=== PATIENT | male | born 1985 | race Caucasian/White ===

== ENCOUNTER 2021-12-18 17:57 | Emergency (ER) | payer OTHER, SELFPAY ==
[2021-12-18] VITALS (8 sets, daily range): BP systolic 125–140; BP diastolic 77–92; PULSE 75–92; RESP 14–16; TEMP 36.3; O2SAT 97–100
--- NOTE | ~2021-12-18 | CT_ITS ---
EXAMINATION: CT abdomen pelvis w con DATE: 12/18/2021 19:38 INDICATION: Abdominal pain. Diarrhea. Blood in stool. TECHNIQUE: Computed tomography (CT) of the abdomen and pelvis was performed with 100 cc Omnipaque 350 intravenous contrast. The dose-length product was 941.99 mGy-cm. Automated exposure control and iter ative reconstruction technique were employed. COMPARISON: None. FINDINGS: Lung bases are unremarkable. Heart size normal. No significant pleural or pericardial effus ion. The liver, spleen, pancreas, adrenal glands and kidneys are within normal limits. There is abnor mal thickening of the distal sigmoid colon and rectum, consistent with proctocolitis, most likely inf ectious or inflammatory. No free air or free fluid. Gallbladder is present. No significant vascular a bnormality. No lymphadenopathy. IMPRESSION: 1. Abnormal thickening of the distal sigmoid colon and rectum, consistent with proctocolitis, most li silvano infectious or inflammatory. Reviewed, dictated and finalized at location A. IMPRESSION: 1. Abnormal thickening of the distal sigmoid colon and rectum, consistent with proctocolitis, most likely infectious or inflammatory.
[2021-12-18 18:29] LABS: Basophils Percent Auto 0.3 % (0.2-1.2); Eosinophils Percent Auto 0.4 % (0-4.4); Hematocrit 49.7 % (42.0-52.0); Hemoglobin 16.1 g/dL (14.0-18.0); Immature Granulocyte Absolute 0.04 K/mm3 (0.00-0.031); Immature Granulocyte Percent A 0.4 % (0-0.5); Lymphocytes Absolute Auto 2.86 K/mm3 (0.9-3.2); Lymphocytes Percent Auto 26.8 % (18.3-44.2); Mean Corpuscular HGB Conc 32.4 g/dl (32-36); Mean Corpuscular Volume 86.6 fl (80-100); Mean Platelet Volume 10.4 fl (7.4-10.4); Monocytes Absolute Auto 0.7 K/mm3 (0.1-0.6); Monocytes Percent Auto 6.6 % (2.6-8.5); Neutrophils Percent Auto 65.5 % (45.5-73.1); Platelet Count Result 273 k/mm3 (150-375); Red Blood Count 5.74 M/mm3 (4.6-6.20); Red Cell Distribution Width 13.9 % (11.5-14.5); White Blood Count 10.7 K/mm3 (4.5-10.0)
[2021-12-18 18:40] LABS: Partial Thromboplastin Time 31.5 SECONDS (22.3-36.8); Prothrombin Time 13.1 Seconds (11.1-14.7)
[2021-12-18 18:43] LABS: Alanine Aminotransferase 25 U/L (6-50); Albumin Level 4.7 g/dL (3.5-5.1); Alkaline Phosphatase 73 U/L (38-126); Anion Gap 12 mmol/L (8-16); Aspartate Amino Transferase 23 U/L (17-59); Bilirubin,Total 0.7 mg/dL (0.2-1.3); Blood Urea Nitrogen 8 mg/dL (9-20); Calcium 9.8 mg/dL (8.4-10.2); Carbon Dioxide 23 mmol/L (22-30); Chloride 101 mmol/L (98-107); Estimated CRCL calculation 134 ml/min; Estimated Glomerular Filt Rate > 60; Glucose 91 mg/dL (65-110); Potassium 3.7 mmol/L (3.4-5.0); Sodium 136 mmol/L (137-145)
--- NOTE | 2021-12-18 19:32 | ED.GIBLEED ---
HPI - GI Bleed General Chief complaint: GI Bleed Stated complaint: pooping blood for a few days Time Seen by Provider: 12/18/21 18:17 History of Present Illness HPI Narrative: This is a 36-year-old male with no significant past medical history, presenting emergency department with multiple episodes of bloody stools for the past 2 days. He states he is noted approximately 5 maroon-colored stools with mucus. This is associated with some lightheadedness and fatigue. He states he has never had any symptoms like this before and denies bleeding from anywhere else. He denies trauma. Related Data Allergies Allergy/AdvReac Type Severity Reaction Status Date / Time bee venom protein (honey bee) AdvReac Swelling Verified 12/18/21 17:58 brompheniramine AdvReac Stopped Verified 12/18/21 17:58 [From Dimetapp Cold-Allergy Breathing (PE)] phenylephrine AdvReac Stopped Verified 12/18/21 17:58 [From Dimetapp Cold-Allergy Breathing (PE)] Review of Systems Review of Systems: CONSTITUTIONAL: Denies fever, chills, or sweats. EYES: Denies visual changes, redness, or discharge. ENT: Denies rhinorrhea, congestion, sore throat, or otalgia. CARDIOVASCULAR: Denies chest pain, palpitations, or edema. RESPIRATORY: Denies cough or dyspnea. GASTROINTESTINAL: Mild abdominal pain, hematochezia, denies nausea or vomiting GENITOURINARY: Denies dysuria or hematuria. SKIN: Denies rash or itching. MUSCULOSKELETAL: Denies back pain, joint pain, or myalgia. NEUROLOGIC: Denies headache, numbness, dizziness, or weakness. PSYCHIATRIC: Denies anxiety or depression. Exam Narrative: GENERAL: Well-appearing, well-nourished, and in no acute distress. Appears tired HEAD: Normocephalic, atraumatic. EYES: PERRLA and EOMI, normal appearing conjunctiva ENT: Nares clear, no rhinorrhea or epistaxis. Mucous membranes moist. Oropharynx without tonsillar hypertrophy exudate or other lesions. NECK: Supple. No adenopathy or masses. No carotid bruits or JVD CHEST: Clear to auscultation. No respiratory distress. No wheezes rales or rhonchi HEART: Regular rate and rhythm. No murmur heard. Normal peripheral pulses. ABDOMEN: Soft, nontender, nondistended, normal active bowel sounds. RECTAL: Normal-appearing external exam. Digital rectal exam elicits tenderness with soft palpable masses consistent with internal hemorrhoids. EXTREMITIES: Normal range of motion. No edema. SKIN: Warm, dry, no rash. NEURO: No focal deficits. Alert and oriented x3. PSYCH: Normal mood and affect. Course Course Emergency Course: 21:19 - Hemoglobin 16. Vital signs within normal limits. Patient also reveals that he recently used a toy in the rectum shortly before the onset of his bleeding. CT findings consistent with proctocolitis, CRP mildly elevated. Discussed patient with Dr. Hughes, who agrees to see the patient in the outpatient setting. Discussed findings with the patient and recommendation for GI follow-up he voices understanding and is comfortable with plan. Discussed all return and emergency precautions including signs or symptoms of severe bleeding. All questions answered to the patient's satisfaction. Vital Signs Vital signs: Vital Signs Temperature 97.4 F L 12/18/21 18:00 Pulse Rate 77 12/18/21 18:00 Respiratory Rate 16 12/18/21 18:00 Blood Pressure 137/77 12/18/21 18:00 Pulse Oximetry 100 12/18/21 18:00 Temperature 97.4 F L 12/18/21 18:00 Pulse Rate 92 12/18/21 21:39 Respiratory Rate 16 12/18/21 21:39 Blood Pressure 128/80 12/18/21 21:39 Pulse Oximetry 99 12/18/21 21:39 MDM - GI Bleed MDM Narrative Medical decision making narrative: Plan: Labs, imaging, reassess Differential Diagnosis Differential diagnosis: Likely hemorrhoids, gastritis, anal fissure and other (Inflammatory bowel disease, other) Lab Data Result diagrams: 12/18/21 18:21 12/18/21 18:21 Labs: Lab Results 12/18/21 12/18/21 08
[2021-12-18 20:34] LABS: CRP 2.6 mg/dL (<1.0)
[2021-12-18 21:35] LABS: Erythrocyte Sedimentation Rate 17 mm/hr (0-20)
[2021-12-18] MEDS: oxyCODONE/ACETAMINOPHEN (*CRX) 5-325 MG TABLET 1 TABLET PO (21:35)
== END 2021-12-18 21:42 | disposition home or self-care (01) ==
PROVIDERS: Emergency Medicine; Emergency Provider Preventive Medicine Aerospace Medicine; PCP Family Medicine
DX: K51.30 Ulcerative (chronic) rectosigmoiditis without complications (principal); K92.1 Melena
CPT/HCPCS: 36415; 74177; 80053; 85025; 85610; 85652; 85730; 86140; 86850; 86900; 86901; 99284; A9270; Q9967

== ENCOUNTER 2024-07-30 09:40 | Inpatient (IN) | payer MEDICAID, SELFPAY ==
[2024-07-30] VITALS (26 sets, daily range): BP systolic 130–156; BP diastolic 76–97; PULSE 55–73; RESP 12–28; TEMP 36.2–36.7; O2SAT 99–100; BMI 28.3
--- NOTE | ~2024-07-30 | CT_ITS ---
EXAMINATION: CTA chest abdomen pelvis DATE: 07/30/2024 10:42 INDICATION: Abdominal pain. TECHNIQUE: Computed tomographic angiography (CTA) of the chest, abdomen, and pelvis was performed wit h 100 mL Omnipaque-350 intravenous contrast. Automated exposure control and iterative reconstruction technique were employed. The dose-length product was 1101.50 mGy-cm. Maximum intensity projection 3D- reconstructions of the aorta and other arteries were constructed by the technologist on a separate wo rkstation. COMPARISON: CT abdomen and pelvis 12/18/2021 FINDINGS: CHEST CTA: The lungs demonstrate mild dependent atelectasis. No pleural effusion. The heart size is normal. No p ericardial effusion. There is no pulmonary embolus. There is mild bilateral gynecomastia. Thoracic ao rta is normal. There is mild thoracic spondylosis. ABDOMEN AND PELVIS CTA: The liver, spleen, pancreas, and adrenal glands are normal. The gallbladder is distended. Right kidne y is normal. There is a 6 mm cyst in left kidney. There is wall thickening of the rectum with surroun ding fat stranding. There are mildly enlarged perirectal lymph nodes. The appendix is normal. There a re no dilated loops of bowel. There is no significant stenosis of superior mesenteric artery, celiac axis, the renal arteries, or inferior mesenteric artery. Abdominal aorta is normal. There are no path ologically enlarged lymph nodes. There is no free intraperitoneal fluid. There is mild lumbar spondyl osis. There is mild lumbar spondylosis. IMPRESSION: 1. Gallbladder distention, which may be secondary to fasting or acute cholecystitis. Correlate with p hysical exam. 2. No significant arterial occlusive disease. 3. Wall thickening of the rectum again seen, consistent with proctitis. Mildly enlarged perirectal ly mph nodes again seen, likely reactive. Reviewed, dictated and finalized at location A. IMPRESSION: 1. Gallbladder distention, which may be secondary to fasting or acute cholecyst itis. Correlate with physical exam. 2. No significant arterial occlusive disease. 3. Wall thickening of the rectum again seen, consistent with proctitis. Mildly enlarged perirectal lymph nodes again seen, likely reactive.
--- NOTE | ~2024-07-30 | US_ITS ---
EXAMINATION: US abdomen limited DATE: 07/30/2024 12:15 INDICATION: Acute cholecystitis. TECHNIQUE: Multiple grayscale and Doppler ultrasound images of the abdomen were obtained. COMPARISON: CT 07/30/2024 FINDINGS: The visualized portions of the head and body of the pancreas are normal. The liver is marian l without focal lesion. There is antegrade flow in main portal vein. The gallbladder is distended and contains gallstones. Gallbladder wall thickening is noted. There is a positive sonographic Shearer si gn. The common duct is normal and measures 5 mm. IMPRESSION: 1. Acute cholecystitis. Reviewed, dictated and finalized at location A. IMPRESSION: 1. Acute cholecystitis.
--- NOTE | 2024-07-30 10:03 | PC.NURSE ---
this RN and another RN attempted to get a temporal, oral, and axillary temperature all reading low temps. rectal temp was taken to confirm low temp of 97.3. 3 warm blankets were placed on pt
[2024-07-30 10:07] LABS: Basophils Percent Auto 0.3 % (0.2-1.2); Eosinophils Absolute Auto 0.1 K/mm3 (0-0.3); Eosinophils Percent Auto 0.8 % (0-4.4); Hematocrit 47.3 % (42.0-52.0); Hemoglobin 15.1 g/dL (14.0-18.0); Immature Granulocyte Absolute 0.03 K/mm3 (0.00-0.031); Immature Granulocyte Percent A 0.3 % (0-0.5); Lymphocytes Absolute Auto 2.41 K/mm3 (0.9-3.2); Lymphocytes Percent Auto 20.3 % (18.3-44.2); Mean Corpuscular HGB Conc 31.9 g/dl (32-36); Mean Corpuscular Hemoglobin 27.7 pg (26-34); Mean Corpuscular Volume 86.6 fl (80-100); Mean Platelet Volume 9.9 fl (7.4-10.4); Monocytes Absolute Auto 0.5 K/mm3 (0.1-0.6); Monocytes Percent Auto 3.9 % (2.6-8.5); Neutrophils Absolute Auto 8.9 K/mm3 (1.3-6.7); Neutrophils Percent Auto 74.4 % (45.5-73.1); Platelet Count Result 348 k/mm3 (150-375); Red Blood Count 5.46 M/mm3 (4.6-6.20); Red Cell Distribution Width 13.9 % (11.5-14.5); White Blood Count 11.9 K/mm3 (4.5-10.0)
--- NOTE | 2024-07-30 10:14 | ED.ABDPAIN ---
HPI - Abdominal Pain General Chief Complaint: Abdominal Pain Stated Complaint: ABD PAIN SINCE 0500 Time Seen by Provider: 07/30/24 09:45 History of Present Illness HPI narrative: 39-year-old male with no pertinent past medical history presenting to the emergency room with sudden onset severe epigastric pain radiating towards his lower abdomen that woke him up from sleep approximately 5 hours ago. Patient is diaphoretic and uncomfortable appearing. He states the initial pain was localized in the epigastrium and left upper quadrant as started going to his general belly at this time. One episode of vomiting. No nauseousness presently. No chest pain shortness a breath. No history of AFib irregular heart rhythm. Was otherwise in his normal state of health. Something similar has happened couple months ago according to the patient and then spontaneously resolved. No injury or trauma. Related Data Allergies Allergy/AdvReac Type Severity Reaction Status Date / Time bee venom protein (honey bee) AdvReac Swelling Verified 07/30/24 09:41 brompheniramine (From AdvReac Stopped Verified 07/30/24 09:41 Dimetapp Cold-Allergy (PE)) Breathing phenylephrine (From Dimetapp AdvReac Stopped Verified 07/30/24 09:41 Cold-Allergy (PE)) Breathing Review of Systems Review of Systems: As reviewed above in HPI [facility] Past Medical History Medical History (Updated 07/30/24 @ 19:48 by Dennis Hammond MD) Abnormality of rectum History of anxiety Surgical History Surgical History No history of previous surgery Family History Family History Father Malignant neoplasm of prostate Hypertension Gallbladder disease Mother Diabetes mellitus Hypertension Sibling Gallbladder disease Social History Social History Smoking status: Never smoker Alcohol intake: current Drinks per week: 1 Substance use: current Substance use type: marijuana Last use: marijuana last night Do You Feel Safe in your Home?: Yes Lack of Transportation: No Lack of Food: Never True Current Housing: I Have Housing Concerned About Future Housing: No Difficulty Paying Gas/Electric Bills: No Difficulty Paying for Meds: No Currently Unemployed: No Education: High School Diploma/GED Difficulty w/ Childcare or Family Care: No Spiritual care concerns: No Exam Narrative: GENERAL: Uncomfortable appearing and diaphoretic, complaining of significant pain HEAD: [Normocephalic, atraumatic.] EYES: [PERRLA and EOMI.] ENT: Nares clear, no rhinorrhea or epistaxis. Mucous membranes moist. NECK: Supple. CHEST: [Clear to auscultation. No respiratory distress.] HEART: [Regular rate and rhythm]. No murmur heard. [Normal peripheral pulses.] ABDOMEN: Soft nontender nondistended abdomen, no rigidity or guarding, no signs of peritonitis EXTREMITIES: Normal range of motion. [No edema.] Symmetric pulses. SKIN: Cool extremities, diaphoretic forehead, no rash or lesions. No mottling. NEURO: [No focal deficits]. Alert and oriented [x3.] PSYCH: [Normal mood and affect.] Course Vital Signs Vital signs: Vital Signs Temperature 36.3 C L 07/30/24 09:46 Pulse Rate 60 07/30/24 09:46 Respiratory Rate 20 07/30/24 09:46 Blood Pressure 156/97 H 07/30/24 09:46 Pulse Oximetry 100 07/30/24 09:46 Oxygen Delivery Room Air 07/30/24 09:46 Temperature 36.7 C 07/30/24 18:00 Pulse Rate 59 L 07/30/24 18:00 Respiratory Rate 20 07/30/24 18:00 Blood Pressure 151/85 H 07/30/24 18:00 Pulse Oximetry 100 07/30/24 18:00 Oxygen Delivery Room Air 07/30/24 09:46 MDM - Abdominal Pain [facility] Narrative Medical decision making narrative: 39-year-old male with no pertinent past medical history presenting with severe sudden-onset epigastric abdominal pain that generalized to his abdomen. He has a nontender nondistended soft abdomen without any peritonitis. Currently his with pain out of proportion to exam is he is very uncomfortable and diaphoretic. Cool extremities with symmetric pulses. Slightly hypertensive but no tachycardia, tachypnea or fever. 100% on room air. Broad workup was ordered this time and suspicion for intra-abdominal process or thoracic process is higher given the physical exam findings. Differential includes gastroenteritis, gastritis, cholecystitis, perforation of a hollow viscus, aortic pathology, thromboembolic process such as mesenteric ischemia or occlusive blood clots elsewhere. Patient was given Dilaudid, blood work was obtained, CT angiography of his chest abdomen pelvis was obtained. Patient re-evaluated frequently placed on vehicle monitor technician and pulse oximetry. EKG ordered. Patient was re-evaluated and had initial improvement after Dilaudid but had a rebound of significant pain and diaphoresis. He was given additional dilaudid. Workup of CT angiography showing no acute occlusive event but does have evidence of cholecystitis. Workup shows a leukocytosis of 11.9, lactic acid elevation, no LFT elevations. Normal renal function. He is afebrile. Right upper quadrant ultrasound confirms cholecystitis. He was started on Zosyn, consult placed to Dr. Sanchez from General surgery. Awaiting consultation and recommendations. Patient updated on plan at this time. Spoke to Dr. Sanchez from surgery who recommended admission to their service for management and will potentially take the patient to the operating room today. Patient admitted at this time. Medical Records Attestation: I reviewed the patient's medical records. Lab Data Attestation: I reviewed the patient's lab results. 07/30/24 09:58 07/30/24 09:58 Labs: Lab Results 07/30/24 07/30/24 07/30/24 Range/Units 09:58 10:24 12:59 WBC 11.9 H (4.5-10.0) K/mm3 RBC 5.46 (4.6-6.20) M/mm3 Hgb 15.1 (14.0-18.0) g/dL Hct 47.3 (42.0-52.0) % MCV 86.6 (80-100) fl MCH 27.7 (26-34) pg MCHC 31.9 L (32-36) g/dl RDW 13.9 (11.5-14.5) % Plt Count 348 (150-375) k/mm3 MPV 9.9 (7.4-10.4) fl Immature Gran % (Auto) 0.3 (0-0.5) % Neut % (Auto) 74.4 H (45.5-73.1) % Lymph % (Auto) 20.3 (18.3-44.2) % [place] % (Auto) 3.9 (2.6-8.5) % Eos % (Auto) 0.8 (0-4.4) % Baso % (Auto) 0.3 (0.2-1.2) % Lymph # (Auto) 2.41 (0.9-3.2) K/mm3 [place] # (Auto) 0.5 (0.1-0.6) K/mm3 Eos # (Auto) 0.1 (0-0.3) K/mm3 Baso # (Auto) 0.0 (0.0-0.1) K/mm3 Abs Immat Gran (auto) 0.03 (0.00-0.031) K/mm3 Absolute Neuts (auto) 8.9 H (1.3-6.7) K/mm3 Absolute Nucleated RBC 0.000 (0.0-0.012) K/mm3 Nucleated RBC % 0.0 (0.0-0.2) % PT 14.0 (11.1-14.7) Seconds INR 1.0 APTT 35.7 (22.3-36.8) Seconds Sodium 142 (137-145) mmol/L Potassium 3.9 (3.4-5.0) mmol/L Chloride 101 (98-107) mmol/L Carbon Dioxide 30 (22-30) mmol/L Anion Gap 11 (4-12) mmol/L BUN 8 L (9-20) mg/dL Creatinine 0.99 (0.7-1.3) mg/dL Estim Creat Clear Calc 103 ml/min Estimated GFR > 60 (59 - ) Glucose 129 H (65-110) mg/dL Lactic Acid 2.9 H (0.7-2.0) mmol/L Calcium 10.3 H (8.4-10.2) mg/dL Total Bilirubin 0.4 (0.2-1.3) mg/dL AST 20 (17-59) U/L ALT 16 (6-50) U/L Alkaline Phosphatase 83 (38-126) U/L Troponin I < 0.012 (0.000-0.034) ng/mL Total Protein 10.0 H (6.3-8.2) g/dL Albumin 4.9 (3.5-5.1) g/dL Lipase 76 (23-300) U/L Urine Color Yellow (Yellow) Urine Appearance Clear (Clear) Urine pH 8.5 (5.0-9.0) Ur Specific [place] > 1.045 H (1.001-1.035) Urine Protein Negative (Negative) mg/dL Urine Glucose (UA) Negative (Negative) mg/dL Urine Ketones Negative (Negative) mg/dL Ur Blood (Man) Negative (Negative) Urine Nitrate Negative (Negative) Urine Bilirubin Negative (Negative) Urine Urobilinogen 0.2 (<2.0) mg/dL Leukocyte Esterase Rfl Negative (Negative) CHINTAN/UL Imaging Data Attestation: I personally reviewed and interpreted this imaging study as follows: Radiologist's impression: ITS Impressions Chest/Abdomen/Pelvis CTA 07/30/24 10:54 IMPRESSION: 1. Gallbladder distention, which may be secondary to fasting or acute cholecystitis. Correlate with physical exam. 2. No significant arterial occlusive disease. 3. Wall thickening of the rectum again seen, consistent with proctitis. Mildly enlarged perirectal lymph nodes again seen, likely reactive. Abdomen Ultrasound 07/30/24 12:18 IMPRESSION: 1. Acute cholecystitis. Discharge Plan Discharge Clinical Impression: Acute cholecystitis, Abdominal pain Patient Disposition: Still a Patient Condition: Improved
[2024-07-30] MEDS: ONDANSETRON INJ 4 MG/2 ML VIAL IV PUSH ×2 (10:16→17:19)
[2024-07-30] MEDS: LACTATED RINGERS 1,000 ML 999 ML IV CONT (10:17)
[2024-07-30] MEDS: HYDROmorphone HCL INJ (*CRX) 1 MG/ML SYR IV PUSH ×4 (10:17→22:44)
--- NOTE | 2024-07-30 10:17 | ECG_ITS ---
Test Date: 2024-07-30 10:27:17 Measurements Intervals [place] Rate: 53 P: 50 IN: 150 QRS: 74 QRSD: 106 T: 71 QT: 426 QTc: 403 Interpretive Statements SINUS BRADYCARDIA No previous ECG available for comparison Electronically Signed On 07-30-2024 13:02:50 CDT by Mary Middleton M.D.
[2024-07-30 10:23] LABS: Alanine Aminotransferase 16 U/L (6-50); Albumin Level 4.9 g/dL (3.5-5.1); Alkaline Phosphatase 83 U/L (38-126); Anion Gap 11 mmol/L (4-12); Aspartate Amino Transferase 20 U/L (17-59); Bilirubin,Total 0.4 mg/dL (0.2-1.3); Blood Urea Nitrogen 8 mg/dL (9-20); Calcium 10.3 mg/dL (8.4-10.2); Carbon Dioxide 30 mmol/L (22-30); Chloride 101 mmol/L (98-107); Estimated CRCL calculation 103 ml/min; Estimated Glomerular Filt Rate > 60; Glucose 129 mg/dL (65-110); Lipase 76 U/L (23-300); Potassium 3.9 mmol/L (3.4-5.0); Sodium 142 mmol/L (137-145)
--- OUTSIDE RECORDS SUMMARY | 2024-07-30 10:35 | XMS_ITS | Clinical Summary ---
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 Gender Identity Not on file Sexual Orientation Not on file Last Filed Vital Signs Vital Sign Reading Time Taken Comments Blood Pressure 120/74 03/11/2015 2:13 PM MACHINE STOPPAGE FREQUENCY CHECKER Pulse - - Temperature - - Respiratory Rate - - Oxygen Saturation - - Inhaled Oxygen Concentration - - Weight 120.7 kg (266 lb) 03/11/2015 2:13 PM MACHINE STOPPAGE FREQUENCY CHECKER Height 189.2 cm (6' 2.5 ) 03/11/2015 2:13 PM MACHINE STOPPAGE FREQUENCY CHECKER Body Mass Index 33.7 03/11/2015 2:13 PM MACHINE STOPPAGE FREQUENCY CHECKER Plan of Treatment Health Maintenance Due Date Last Done Comments Annual Physical 02/01/1988 Hepatitis C 2003 DTaP, Tdap and Td Vaccines ( 1 - Tdap) 02/01/2004 Hepatitis B Vaccines (1 of 3 - 19+ 3-dose series) 02/01/2004 COVID-19 Vaccine (2023-2 5 season) 2024 Influenza Adult (#1) 2024 HPV Vaccines Aged Out No longer eligi ble based on patient's age to complete this topic Meningococcal B Vaccine Aged Out No l onger eligible based on patient's age to complete this topic Meningococcal Vaccine Aged Out No ann marie guy eligible based on patient's age to complete this topic Pneumococcal Vaccine: Pediat rics (0 to 5 Years) and At-Risk Patients (6 to 64 Years) Aged Out No longer eligible b ased on patient's age to complete this topic RSV Immunizations Under 20 Months Aged Out No longer eligible based on patient's age to complete this topic
--- OUTSIDE RECORDS SUMMARY | 2024-07-30 10:35 | XMS_ITS | Clinical Summary ---
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 Gender Identity Not on file Sexual Orientation Not on file Plan of Treatment Health Maintenance Due Date Last Done Comments Hepatitis C Virus (HCV) Screening 1985 TdaP Immunization 1985 Hepatitis B Immunization (1 of 3 - 19+ 3-dose series) 02/01/2004 Influenza Immunization (#1) 2024 SARS-COV-2 Immunization ( - season) 2024 Respiratory Syncytial Virus (RSV) Immunization (Adult) (1 - 1-dose 75+ series) 02/01/2060 Meningococcal Immunization (ACWY) Aged Out No longer eligible based on patient's age to complete this topic Pneumococcal Immunization Combined Aged Out No longer eligible based on patient's age to complete this topic Rotavirus Immunization Aged Out No lo nger eligible based on patient's age to complete this topic
[2024-07-30 10:45] LABS: Lactic Acid Reflex 2.9 mmol/L (0.7-2.0)
[2024-07-30 10:52] LABS: Partial Thromboplastin Time 35.7 Seconds (22.3-36.8)
[2024-07-30 10:58] LABS: Troponin I < 0.012 ng/mL (0.000-0.034)
--- OUTSIDE RECORDS SUMMARY | 2024-07-30 11:16 | XMS_ITS | Clinical Summary ---
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
--- OUTSIDE RECORDS SUMMARY | 2024-07-30 11:16 | XMS_ITS | Clinical Summary ---
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
[2024-07-30 12:32] LABS: Reflex Lactic Acid Yes or No Add Lactic
[2024-07-30] MEDS: PIPERACILLIN/TAZ 4.5G/NS 100ML 4.5 GM/100 ML BAG IVPB (13:03)
[2024-07-30 13:13] LABS: Add Urine Microscopic? NO; Appearance Urine Clear (Clear); Bilirubin Urine Negative (Negative); Blood Urine Negative (Negative); Color Urine Yellow (Yellow); Glucose Urine UA Negative (Negative); Ketones Urine Negative (Negative); Leukocyte Esterase Ur Negative LEU/UL (Negative); Nitrate Urine Negative (Negative); Protein Urine Negative (Negative); Specific Grav Ur > 1.045 (1.001-1.035); Urobilinogen Urine 0.2 mg/dL (<2.0); pH Urine 8.5 (5.0-9.0)
[2024-07-30 13:29] LABS: Lactic Acid 2.4 mmol/L (0.7-2.0)
[2024-07-30] MEDS: LACTATED RINGERS 1,000 ML 125 ML IV CONT (13:50)
--- NOTE | 2024-07-30 14:23 | P.HP_ITS ---
H&P: HPI History of Present Illness Date/Time: 07/30/24 14:23 Chief Complaint: RUQ abdominal pain Narrative: This is a 39-year-old man with no known medical problems, who presented to the ED today with complaints of RUQ abdominal pain for less than 12 hours. He reportedly had cereal last night before bed and went to sleep feeling in his usual state of health. Sometime early this morning, he is guessing around 5:00 am, he woke up from sleep with a sudden onset of RUQ abdominal pain. He attempted taking Gas-X twice this morning without relief. He denies any nausea, but attempted to force himself to vomit in hopes it would relieve his pain, but there was no relief. He had two previous episodes of similar pain that were more mild and resolved spontaneously at home in the past about 6 months ago, but this time his pain became more severe. Therefore, he came into the ER for evaluation. Labs were significant for a WBC count of 11,900, LFTs normal, troponin negative, and lactic acid 2.9 which came down to 2.4 on repeat. CTA chest, abdomen, and pelvis showed gallbladder distention, which could be related to acute cholecystitis or secondary to fasting. Also noted is rectal wall thickening consistent with proctitis with mildly enlarged perirectal lymph nodes that was seen on a previous CT scan in 2021. He denies any rectal pain or pressure. He recalls when he was seen for proctocolitis in 2021 and was having diarrhea and abdominal pain, which he is not currently having and his pain is in a different location today. He continues to have blood in his stool occasionally. He has not had a colonoscopy and does not have an established primary care provider. No previous abdominal surgery. He continues to have abdominal pain in the ER, but has had some relief with the IV Dilaudid. He was also given a dose of IV Zosyn and 1 liter of IV fluids. Review of Systems Review of Systems: All systems reviewed & are unremarkable except as noted in HPI and below PMFSH Past Medical History Medical History (Updated 07/30/24 @ 14:37 by DIANNE Garcia) Abnormality of rectum History of anxiety Surgical History Surgical History No history of previous surgery Family History Family History Father Malignant neoplasm of prostate Hypertension Gallbladder disease Mother Diabetes mellitus Hypertension Sibling Gallbladder disease Social History Social History Smoking status: Never smoker Alcohol intake: never Substance use: current Substance use type: marijuana Last use: marijuana last night Meds Home Medications and Allergies Home Medications ?Medication ?Instructions ?Recorded ?Confirmed ?Type acetaminophen 500 mg capsule 500 mg PO Q8H PRN pain #30 caps 12/18/21 01/05/22 Rx Allergies Allergy/AdvReac Type Severity Reaction Status Date / Time bee venom protein (honey bee) AdvReac Swelling Verified 07/30/24 09:41 brompheniramine (From AdvReac Stopped Verified 07/30/24 09:41 Dimetapp Cold-Allergy (PE)) Breathing phenylephrine (From Dimetapp AdvReac Stopped Verified 07/30/24 09:41 Cold-Allergy (PE)) Breathing Vital Signs Vital Signs - 24 hr 07/30/24 09:46 07/30/24 09:48 07/30/24 10:01 Temperature 97.3 F L Pulse Rate 60 55 L 57 L Respiratory Rate 20 24 H 22 H Blood Pressure 156/97 H 156/97 H 147/92 H Pulse Oximetry 100 100 100 Oxygen Delivery Room Air 07/30/24 10:16 07/30/24 10:31 07/30/24 10:47 Temperature Pulse Rate 55 L 56 L Respiratory Rate 22 H 14 Blood Pressure 139/87 134/92 H 138/81 Pulse Oximetry 100 100 100 Oxygen Delivery 07/30/24 11:01 07/30/24 11:16 07/30/24 11:31 Temperature Pulse Rate 59 L 56 L 59 L Respiratory Rate 28 H 24 H 23 H Blood Pressure 139/81 144/79 H 138/89 Pulse Oximetry 100 100 100 Oxygen Delivery 07/30/24 11:46 07/30/24 12:01 07/30/24 12:16 Temperature Pulse Rate 58 L 65 65 Respiratory Rate 17 12 17 Blood Pressure 142/84 H 130/86 143/81 H Pulse Oximetry 100 100 100 Oxygen Delivery 07/30/24 12:31 07/30/24 13:01 07/30/24 13:16 Temperature Pulse Rate 62 58 L 60 Respiratory Rate 12 17 12 Blood Pressure 153/92 H 137/82 134/76 Pulse Oximetry 100 100 100 Oxygen Delivery 07/30/24 13:31 07/30/24 13:46 07/30/24 14:01 Temperature Pulse Rate 59 L 63 56 L Respiratory Rate 25 H 28 H 23 H Blood Pressure 139/84 138/80 139/81 Pulse Oximetry 99 100 100 Oxygen Delivery Exam Const: General: awake and uncomfortable (d/t pain) Nutritional Appearance: average body habitus Orientation/consciousness: patient oriented x3 HENMT: Head: normocephalic and atraumatic Ears: hearing grossly normal bilaterally Mouth: Yes moist mucous membranes Eyes: General: appearance normal, both eyes and all related structures Pupils: Equal, round and reactive pupils present Neck: Neck: normal visual inspection and full ROM Resp: Effort & Inspection: no respiratory distress Auscultation: clear to auscultation bilaterally Cardio: Rate: regular rate Rhythm: regular rhythm Peripheral pulses: Peripheral pulses 2+ throughout GI: Inspection: non-distended, no scars and no visible herniation GI Palp: Yes Soft to palpation, Yes Tenderness to palpation present (GI) (focal RUQ tenderness with palpable gallbladder), Yes Guarding due to palpation present (GI) (RUQ), No Splenomegaly present and No Rebound tenderness present Percussion: Yes normal to percussion Auscultation: normal bowel sounds Skin: General skin exam: normal color Neuro: General: moves all extremities and no focal motor deficits Speech: normal speech Motor exam (neuro): 5/5 motor strength present throughout Extrem: General: normal to inspection and no edema Psych: Mental Status: mental status grossly normal Attitude: cooperative Insight: Good insight present (Psych) Judgement: Good judgement present (Psych) H&P: Results Labs Labs: Short CBC 07/30/24 Range/Units 09:58 WBC 11.9 H (4.5-10.0) K/mm3 Hgb 15.1 (14.0-18.0) g/dL Hct 47.3 (42.0-52.0) % Plt Count 348 (150-375) k/mm3 BMP 07/30/24 09:58 Sodium 142 Potassium 3.9 Chloride 101 Carbon Dioxide 30 BUN 8 L Creatinine 0.99 Glucose 129 H Calcium 10.3 H Cardiac Enzymes 07/30/24 Range/Units 10:24 Troponin I < 0.012 (0.000-0.034) ng/mL Liver Function 07/30/24 Range/Units 09:58 Total Bilirubin 0.4 (0.2-1.3) mg/dL AST 20 (17-59) U/L ALT 16 (6-50) U/L Alkaline Phosphatase 83 (38-126) U/L Albumin 4.9 (3.5-5.1) g/dL Urine 07/30/24 Range/Units 12:59 Urine Color Yellow (Yellow) Urine Appearance Clear (Clear) Urine pH 8.5 (5.0-9.0) Ur Specific [place] > 1.045 H (1.001-1.035) Urine Protein Negative (Negative) mg/dL Urine Glucose (UA) Negative (Negative) mg/dL Imaging CT scan - abdomen: Radiologist's impression: ITS Impressions Chest/Abdomen/Pelvis CTA 07/30/24 10:54 IMPRESSION: 1. Gallbladder distention, which may be secondary to fasting or acute cholecystitis. Correlate with physical exam. 2. No significant arterial occlusive disease. 3. Wall thickening of the rectum again seen, consistent with proctitis. Mildly enlarged perirectal lymph nodes again seen, likely reactive. US - abdomen: Radiologist's impression: Abdomen Ultrasound 07/30/24 12:18 IMPRESSION: 1. Acute cholecystitis. Assessment and Plan Assessment and plan (1) Acute calculous cholecystitis: Code(s): K80.00 - Calculus of gallbladder with acute cholecystitis without obstruction Status: Acute Assessment and Plan: He presented with RUQ abdominal pain for about [address] scan and abdominal ultrasound reviewed and findings are consistent with acute calculous cholecystitis. WBC count and lactic acid were slightly elevated. He is hem odynamically stable. We discussed both nonoperative and surgical treatment options in detail. We would recommend proceeding with a laparoscopic cholecystectomy under general anesthesia that would be done by Dr. Sanchez. Description of the procedure, risks, benefits, alternatives, and expected recovery were discussed with the patient in detail. We discussed the risks of bile leak and bile duct injury, liver/bowel injury, bleeding, and infection. Also discussed the possibility of having to convert to an open procedure if necessary. The patient wishes to proceed with surgery. Will continue IV fluids, IV Zosyn, and keep him NPO while scheduling surgery. (2) Abnormality of rectum: Code(s): K62.9 - Disease of anus and rectum, unspecified Status: Acute Assessment and Plan: Incidentally noted on CT. This was seen on a previous CT scan in 2021 and he was treated with proctocolitis. He is not currently having any lower abdominal or rectal pain. He is not having any rectal bleeding, but reports he still does on occasion, which was occurring before. He had seen GI in 2021 who was going to set him up for a colonoscopy. I recommended that after he recovers from his acute cholecystitis, that he work on setting up care with a PCP and getting a re ferral for a colonoscopy. Plan I have discussed the patient's case and plan of care with Dr. Sanchez. Quality VTE Prophylaxis VTE prophylaxis: mechanical ordered If No VTE Prophylaxis Answer both mechanical and pharmacologic: Reason no pharmacologic proph: medical contraindication (surgery)
[2024-07-30] MEDS: SODIUM CHLORIDE 0.9% IV 1,000 ML 125 ML IV CONT (17:19)
--- NOTE | 2024-07-30 18:40 | ADMGEN ---
This patient, Eris England, was admitted to 3 [facility] Surg Room 312-01. Patient/family oriented to hospital policies and general routines including ID bracelet, bed and alarms, visiting hours, pain management, procedures, bathroom and other care routines, personal items, smoking policy, room service/diet, and visiting hours. Information on how to activate the Rapid Response Team has been discussed. Patient/Family are encouraged to report perceived risks to care and to ask questions if they do not understand what they are told or what they should do.
[2024-07-30] MEDS: PIPERACILLN/TAZ 3.375GM/NS50ML 3.375 GM/50 ML BAG IVPB (19:44)
[2024-07-31] VITALS (13 sets, daily range): BP systolic 121–150; BP diastolic 71–93; PULSE 64–90; RESP 12–26; TEMP 36.2–36.8; O2SAT 97–100
[2024-07-31] MEDS: PIPERACILLN/TAZ 3.375GM/NS50ML 3.375 GM/50 ML BAG IVPB ×3 (00:21→11:44)
[2024-07-31] MEDS: SODIUM CHLORIDE 0.9% IV 1,000 ML 125 ML IV CONT ×2 (02:10→11:43)
[2024-07-31 06:02] LABS: Basophils Percent Auto 0.3 % (0.2-1.2); Eosinophils Absolute Auto 0.1 K/mm3 (0-0.3); Eosinophils Percent Auto 1.1 % (0-4.4); Hematocrit 41.3 % (42.0-52.0); Hemoglobin 13.2 g/dL (14.0-18.0); Immature Granulocyte Absolute 0.04 K/mm3 (0.00-0.031); Immature Granulocyte Percent A 0.4 % (0-0.5); Lymphocytes Absolute Auto 2.01 K/mm3 (0.9-3.2); Mean Corpuscular Hemoglobin 27.3 pg (26-34); Mean Corpuscular Volume 85.3 fl (80-100); Monocytes Absolute Auto 0.7 K/mm3 (0.1-0.6); Monocytes Percent Auto 6.5 % (2.6-8.5); Neutrophils Absolute Auto 7.7 K/mm3 (1.3-6.7); Neutrophils Percent Auto 72.7 % (45.5-73.1); Platelet Count Result 286 k/mm3 (150-375); Red Blood Count 4.84 M/mm3 (4.6-6.20); White Blood Count 10.6 K/mm3 (4.5-10.0)
[2024-07-31 06:12] LABS: Alanine Aminotransferase 80 U/L (6-50); Albumin Level 3.7 g/dL (3.5-5.1); Alkaline Phosphatase 83 U/L (38-126); Anion Gap 8 mmol/L (4-12); Aspartate Amino Transferase 94 U/L (17-59); Bilirubin,Total 0.6 mg/dL (0.2-1.3); Blood Urea Nitrogen 5 mg/dL (9-20); Calcium 8.8 mg/dL (8.4-10.2); Carbon Dioxide 27 mmol/L (22-30); Chloride 103 mmol/L (98-107); Estimated CRCL calculation 128 ml/min; Estimated Glomerular Filt Rate > 60; Glucose 110 mg/dL (65-110); Potassium 3.7 mmol/L (3.4-5.0); Sodium 138 mmol/L (137-145)
[2024-07-31] MEDS: HYDROmorphone HCL INJ (*CRX) 1 MG/ML SYR IV PUSH (06:17)
[2024-07-31] MEDS: ACETAMINOPHEN 325 MG TABLET 650 MG PO (11:44)
[2024-07-31] MEDS: LACTATED RINGERS 1,000 ML 30 ML IV CONT ×2 (13:25→16:58)
--- NOTE | 2024-07-31 14:19 | WPDHPUPDATE1 ---
History and Physical Update Update Date/Time: 07/31/24 14:19 History and Physical has been reviewed, including an updated exam of the patient. There are NO changes in the patient's condition. Risks, benefits, and alternatives have been discussed and questions answered. Patient agrees to proceed with procedure. Procedure is now going to be robotic assisted laparoscopic cholecystectomy, possible open.
--- NOTE | 2024-07-31 14:22 | WPDANESEPPF ---
Anes - Initial Pre Proc Eval Procedure: Operation Date: 07/31/24 14:30 Proposed Procedures p Laparoscopic Cholecystectomy, Possible Open - Fred Sanchez MD Date/Time: 07/31/24 14:22 Surgeon: Fred Sanchez MD Pre Op Diagnosis: Acute cholecystitis, epigastric pain Patient Data Age: 39 Gender: M Height: 1.88 m Weight: 100 kg Last Vital Signs Temp 97.7 F 07/31/24 13:20 Pulse 76 07/31/24 13:20 Resp 16 07/31/24 13:20 BP 126/86 07/31/24 13:20 Pulse Ox 100 07/31/24 13:20 O2 Del Method Room Air 07/31/24 13:20 Allergies Allergy/AdvReac Type Severity Reaction Status Date / Time bee venom protein (honey bee) AdvReac Swelling Verified 07/30/24 09:41 brompheniramine (From AdvReac Stopped Verified 07/30/24 09:41 Dimetapp Cold-Allergy (PE)) Breathing phenylephrine (From Dimetapp AdvReac Stopped Verified 07/30/24 09:41 Cold-Allergy (PE)) Breathing Home Medications ?Medication ?Instructions ?Recorded ?Confirmed ?Type acetaminophen 500 mg capsule 500 mg PO Q8H PRN pain #30 caps 12/18/21 07/31/24 Rx Laboratory Tests 07/30/24 07/31/24 16:15 05:37 WBC 10.6 H K/mm3 (4.5-10.0) RBC 4.84 M/mm3 (4.6-6.20) Hgb 13.2 L g/dL (14.0-18.0) Hct 41.3 L % (42.0-52.0) MCV 85.3 fl (80-100) MCH 27.3 pg (26-34) MCHC 32.0 g/dl (32-36) RDW 14.0 % (11.5-14.5) Plt Count 286 k/mm3 (150-375) MPV 10.0 fl (7.4-10.4) Immature Gran % (Auto) 0.4 % (0-0.5) Neut % (Auto) 72.7 % (45.5-73.1) Lymph % (Auto) 19.0 % (18.3-44.2) [place] % (Auto) 6.5 % (2.6-8.5) Eos % (Auto) 1.1 % (0-4.4) Baso % (Auto) 0.3 % (0.2-1.2) Lymph # (Auto) 2.01 K/mm3 (0.9-3.2) [place] # (Auto) 0.7 H K/mm3 (0.1-0.6) Eos # (Auto) 0.1 K/mm3 (0-0.3) Baso # (Auto) 0.0 K/mm3 (0.0-0.1) Abs Immat Gran (auto) 0.04 H K/mm3 (0.00-0.031) Absolute Neuts (auto) 7.7 H K/mm3 (1.3-6.7) Absolute Nucleated RBC 0.000 K/mm3 (0.0-0.012) Nucleated RBC % 0.0 % (0.0-0.2) Sodium 138 mmol/L (137-145) Potassium 3.7 mmol/L (3.4-5.0) Chloride 103 mmol/L (98-107) Carbon Dioxide 27 mmol/L (22-30) Anion Gap 8 mmol/L (4-12) BUN 5 L mg/dL (9-20) Creatinine 0.78 mg/dL (0.7-1.3) Estim Creat Clear Calc 128 ml/min Estimated GFR > 60 (59 - ) Glucose 110 mg/dL (65-110) Calcium 8.8 mg/dL (8.4-10.2) Total Bilirubin 0.6 mg/dL (0.2-1.3) AST 94 H U/L (17-59) ALT 80 H U/L (6-50) Alkaline Phosphatase 83 U/L (38-126) Total Protein 7.0 g/dL (6.3-8.2) Albumin 3.7 g/dL (3.5-5.1) Blood Type AB Negative Antibody Screen Negative Patient hx anesthesia problems: none Family hx anesthesia problems: none Results Review: All pre-operative results and documents have been reviewed as part of the pre-operative evaluation. [facility] Past Medical History Medical History Abnormality of rectum History of anxiety Surgical History Surgical History No history of previous surgery Family History Family History Father Malignant neoplasm of prostate Hypertension Gallbladder disease Mother Diabetes mellitus Hypertension Sibling Gallbladder disease Social History Social History Smoking status: Never smoker Alcohol intake: current Drinks per week: 1 Substance use: current Substance use type: marijuana Last use: marijuana last night Do You Feel Safe in your Home?: Yes Lack of Transportation: No Lack of Food: Never True Current Housing: I Have Housing Concerned About Future Housing: No Difficulty Paying Gas/Electric Bills: No Difficulty Paying for Meds: No Currently Unemployed: No Education: High School Diploma/GED Difficulty w/ Childcare or Family Care: No Spiritual care concerns: No Anes - Eval Final PreProcedure Day of Procedure 07/31/24 14:22 Patient weight: overweight Lungs: normal air movement Airway: Mallampati scale and special considerations (Pt w broken upper R and L incisors. ) Neurological: alert and oriented Last oral intake: >/= 8 hours ASA classification: III Emergent: no Anesthetic plan: proceed Anesthesia type and monitoring: general ETT and standard monitoring Results Review: All pre-operative results and documents have been reviewed as part of the pre-operative evaluation. Pt smokes marijuana daily, 2x most days, a fingernail amount , BMI 28. Informed Consent: The patient's anesthetic plan and its attendant risks and benefits were discussed with the patient/family/POA. Questions were solicited and answers provided to the satisfaction of the patient/family/POA.
[2024-07-31] MEDS: INDOCYANINE GREEN 25 MG VIAL WITH DILUENT 3.75 MG IV PUSH (14:29)
[2024-07-31] MEDS: LIDO 1%/EPINEPHRINE 1:100,000 50 ML VIAL 30 ML INFILTRATE (14:48)
[2024-07-31] MEDS: BUPivacaine HCL 0.5% 10 ML AMP 30 ML INFILTRATE (14:48)
[2024-07-31] MEDS: ONDANSETRON INJ 4 MG/2 ML VIAL IV PUSH (17:14)
[2024-07-31] MEDS: fentaNYL CITRATE INJ (*CRX) 100 MCG/2 ML VIAL 25 MCG IV PUSH ×4 (17:16→17:35)
[2024-07-31] MEDS: HYDROmorphone HCL INJ (*CRX) 1 MG/ML SYR 0.25 MG IV PUSH ×4 (17:51→18:07)
[2024-07-31] MEDS: diphenhydrAMINE HCl INJ 50 MG/ML VIAL 25 MG IV PUSH (18:36)
--- NOTE | 2024-07-31 18:37 | W.PM.PROC2 ---
Procedure Note - Detailed Date of Procedure 07/31/24 Pre-op Diagnosis Acute cholecystitis secondary to cholelithiasis Post-op Diagnosis Same Procedure Performed Robotic assisted laparoscopic cholecystectomy Surgeon Fred Sanchez MD [facility]ilities [employer]or SALMA Maldonado Anesthesia General Indications Patient is a 39-year-old gentleman who was admitted to the hospital through the emergency room yesterday with a several history of the sudden onset of epigastric and right upper quadrant abdominal pain. He underwent workup in emergency room which showed him to have a mildly elevated white blood count 05104. Liver enzymes were normal. Imaging included a CT scan abdomen pelvis which showed a dilated gallbladder with cholelithiasis noted and some thickening and edema of the gallbladder wall consistent with acute cholecystitis. He also had an abdominal ultrasound performed showing gallbladder wall thickening and pericholecystic inflammation with gallstones consistent with acute cholecystitis. He presents now for robotic assisted laparoscopic cholecystectomy. Findings The patient had acute cholecystitis secondary to gallstones. The gallbladder was dilated and tense without evidence of gangrene of the gallbladder wall perforation. I had to laparoscopically decompress the gallbladder in order to hold the gallbladder to perform the laparoscopic cholecystectomy with robotic assistance. There was moderately severe inflammatory changes with omentum adherent to the gallbladder wall. Description of Procedure After informed consent was obtained patient brought to the operating room was placed supine position and general endotracheal anesthesia was administered. The abdomen was then prepped and draped usual sterile fashion. A time-out was then performed correctly identifying the patient as well as procedure to be performed. He was already on scheduled IV antibiotics. I then proceeded to enter the abdomen left upper quadrant utilizing a 5mm Optiview port. Once inside the abdomen insufflated to adequate pneumoperitoneum of 15mmHg of CO2. Under direct visualization I then placed additional robotic 8mm trocar ports across the mid abdominal region. The [employer] [place] robot was then brought to the patient's bedside and docked and the robotic arms were attached the robotic ports. Robotic instruments were then advanced into the abdomen under direct visualization. I then scrubbed out the procedure sent down the robotic console to perform the dissection. Initially I had to have a laparoscopic decompressing needle brought into the field through 1 of the port sites and the dome of the gallbladder was punctured with a decompressing needle. Copious amount of non the purulent and nonbloody bile was drained from the gallbladder. I was then able to hold the gallbladder with a robotic grasper at the dome and elevated the gallbladder over the right half liver towards right shoulder. Inflammatory adhesions of the omentum to the fundus of the gallbladder were then released from the gallbladder utilizing a combination of blunt robotic dissection as well as electrocautery dissection with the robotic hook cautery. Is a reach the infundibular gallbladder I was able to place a 2nd robotic grasper onto the infundibular gallbladder and then proceeded to strip down the omentum in visceral peritoneum off of the infundibular gallbladder. Eventually I was able to identify 2 structures going to the gallbladder both the structures were then dissected out circumferentially. The lateral structure which appeared to be the cystic duct and the more medial posterior structure was the cystic artery. The patient was given ICG prior to coming to the operating room and so then I used firefly on the [employer] robot to visualize the common bile duct. The structure going into the gallbladder did not appear to be the common bile duct and indeed was the cystic duct. The posterior wall the gallbladder at the infundibulum dissected free of the liver into the critical view was obtained. At this point I then placed 2 robotic clips proximally cystic duct and 1 clip distally high on infundibular gallbladder. The cystic duct was then divided with robotic hook cautery on pure cut. Submitted clipping and division was performed on the cystic artery. The gallbladder was then resected off the liver utilizing robotic hook cautery dissection. Small amount of bile did spill from the gallbladder but no gallstones were spilled. Once the gallbladder was completely free from the liver I then had a 10mm laparoscopic trocar port placed in the periumbilical robotic trocar port site to accommodate a Endo-Catch bag. The bag was placed into the abdomen and the gallbladder was placed into the Endo-Catch bag. The gallbladder was then removed through the periumbilical trocar port incision and then passed off table along the gallstone within it to pathology. I then irrigated out the right upper quadrant of the abdomen with sterile saline solution. Blood clot in the area was then aspirated with robotic suction. Under firefly I looked and did not see any leaking of bile from the gallbladder bed. I then irrigated the right upper quadrant once more and then aspirated all the fluid. Hemostasis was good. I then scrubbed back in the procedure and then proceeded to remove all the trocar ports under direct visualization. All port sites appeared hemostatic. The abdomen was allowed to decompress. The periumbilical 10mm trocar port fascial defect was then closed utilizing a 0 Vicryl suture in a figure-eight fashion at the fascial level. The skin edges in all the port sites were then approximated utilizing a running subcuticular 4-0 Monocryl suture. The incisions were then cleaned the skin glue was applied. The patient tolerated the procedure well no complications. All sponges, needles, and instrument counts were correct at the end procedure. EBL was _50__cc. The patient was awakened and taken to recovery in stable and satisfactory condition. Implants None Estimated Blood Loss 50 Urine Output 800 Drains No Packing No Pathology Yes (Gallbladder and gallstones sent to pathology) Complications No immediate complications Condition Stable Disposition PACU [facility] Billing Surgery - Charge Forward: Surgery Billing
[2024-07-31] MEDS: HYDROcodone/acetaminophen (*CRX) 5-325 MG TABLET 1 TAB PO (22:28)
[2024-07-31] MEDS: oxyCODONE HCL (*CRX) 5 MG TAB IR PO (23:53)
[2024-08-01] MEDS: HYDROmorphone HCL INJ (*CRX) 1 MG/ML SYR IV PUSH ×4 (02:40→23:10)
[2024-08-01] MEDS: SODIUM CHLORIDE 0.9% IV 1,000 ML 125 ML IV CONT (02:40)
[2024-08-01] MEDS: ONDANSETRON INJ 4 MG/2 ML VIAL IV PUSH ×3 (02:44→22:08)
[2024-08-01 05:29] VITALS: BP 121/73; PULSE 77; RESP 14; TEMP 36.4; O2SAT 98
[2024-08-01 05:32] LABS: Basophils Percent Auto 0.1 % (0.2-1.2); Eosinophils Percent Auto 0.2 % (0-4.4); Hematocrit 39.5 % (42.0-52.0); Hemoglobin 12.5 g/dL (14.0-18.0); Immature Granulocyte Absolute 0.04 K/mm3 (0.00-0.031); Immature Granulocyte Percent A 0.4 % (0-0.5); Lymphocytes Absolute Auto 2.19 K/mm3 (0.9-3.2); Lymphocytes Percent Auto 19.9 % (18.3-44.2); Mean Corpuscular HGB Conc 31.6 g/dl (32-36); Mean Corpuscular Hemoglobin 27.2 pg (26-34); Mean Corpuscular Volume 85.9 fl (80-100); Mean Platelet Volume 9.9 fl (7.4-10.4); Monocytes Absolute Auto 0.5 K/mm3 (0.1-0.6); Monocytes Percent Auto 4.9 % (2.6-8.5); Neutrophils Absolute Auto 8.2 K/mm3 (1.3-6.7); Neutrophils Percent Auto 74.5 % (45.5-73.1); Platelet Count Result 313 k/mm3 (150-375); Red Cell Distribution Width 14.1 % (11.5-14.5)
[2024-08-01 05:38] LABS: Alanine Aminotransferase 86 U/L (6-50); Albumin Level 3.5 g/dL (3.5-5.1); Alkaline Phosphatase 88 U/L (38-126); Anion Gap 9 mmol/L (4-12); Aspartate Amino Transferase 54 U/L (17-59); Bilirubin,Total 0.6 mg/dL (0.2-1.3); Blood Urea Nitrogen 6 mg/dL (9-20); Calcium 8.9 mg/dL (8.4-10.2); Carbon Dioxide 27 mmol/L (22-30); Chloride 101 mmol/L (98-107); Estimated CRCL calculation 120 ml/min; Estimated Glomerular Filt Rate > 60; Glucose 104 mg/dL (65-110); Sodium 137 mmol/L (137-145)
--- NOTE | 2024-08-01 07:15 | P.PNGS_ITS ---
Progress Note: A&P Assessment and Plan (1) Acute calculous cholecystitis: Code(s): K80.00 - Calculus of gallbladder with acute cholecystitis without obstruction Status: Acute Assessment and Plan: Has not need in anything yet postoperatively and still having a lot of pain. Continue care in the hospital today with IV pain medication or oral pain medication as needed. Up walking. Recheck labs in a.m.. Possibly home tomorrow. Subjective Subjective Date/Time Seen: 08/01/24 07:15 Patient reports: still having pain, voiding w/o difficulty, nausea and afebrile Exam Const: General: awake and tired appearing GI: Inspection: non-distended and incision (Looked good) GI Palp: Yes Soft to palpation and Yes Tenderness to palpation present (GI) Objective Data Vital Signs Vital Signs: Vital Signs - 24 hr 07/31/24 07:40 07/31/24 13:20 07/31/24 16:58 Temperature 36.2 C L 36.5 C 36.8 C Pulse Rate 64 76 90 Respiratory Rate 20 16 12 Blood Pressure 127/82 126/86 123/71 Pulse Oximetry 98 100 100 Oxygen Delivery Room Air Simple Face Mask Oxygen Flow Rate 7 Fraction of Inspired Oxygen 07/31/24 17:10 07/31/24 17:25 07/31/24 17:40 Temperature Pulse Rate 82 89 87 Respiratory Rate 20 26 H 23 H Blood Pressure 144/89 H 134/82 138/89 Pulse Oximetry 100 98 97 Oxygen Delivery Room Air Room Air Room Air Oxygen Flow Rate Fraction of Inspired Oxygen 07/31/24 17:55 07/31/24 18:10 07/31/24 18:25 Temperature Pulse Rate 86 84 87 Respiratory Rate 20 20 20 Blood Pressure 131/82 121/78 134/80 Pulse Oximetry 98 97 98 Oxygen Delivery Room Air Room Air Room Air Oxygen Flow Rate Fraction of Inspired Oxygen 07/31/24 20:00 07/31/24 20:59 07/31/24 21:08 Temperature 36.2 C L Pulse Rate 75 75 Respiratory Rate 14 14 Blood Pressure 129/80 Pulse Oximetry 99 98 99 Oxygen Delivery Room Air Room Air Oxygen Flow Rate Fraction of Inspired Oxygen 21 21 08/01/24 05:29 Temperature 36.4 C Pulse Rate 77 Respiratory Rate 14 Blood Pressure 121/73 Pulse Oximetry 98 Oxygen Delivery Oxygen Flow Rate Fraction of Inspired Oxygen Intake/Output Intake/Output: Intake & Output 03/25/25 03/26/25 03/27/25 03/28/25 23:59 23:59 23:59 23:59 Intake Total 2172.5 4200 400 Output Total 1600 1900 Balance 2172.5 2600 -1500 Meds/Results Medications: Active Medications Generic Name Dose Route Start Last Admin Trade Name Freq PRN Reason Stop Dose Admin Acetaminophen 1,000 mg 07/31/24 18:43 Acetaminophen 500 Mg Tablet PO Q6H PRN Mild Pain (1-3) or Fever Hydrocodone Bitart/Acetaminophen 1 tab 07/31/24 18:43 07/31/24 22:28 Hydrocodone/Acetaminophen (*Crx) 5-325 Mg Tablet PO 1 tab Q4H PRN Administration Pain Rated 4-6 Hydromorphone HCl 1 mg 07/30/24 15:57 08/01/24 02:40 Hydromorphone Hcl Inj (*Crx) 1 Mg/Ml Syr IV PUSH 1 mg Q3H PRN Administration Pain Rated 7-10 Sodium Chloride 1,000 mls @ 125 mls/hr 07/30/24 16:00 08/01/24 02:40 Normal Saline Iv IV CONT 125 mls/hr .Q8H BRAYDEN Administration Ondansetron HCl 4 mg 07/30/24 15:57 08/01/24 02:44 Ondansetron Inj 4 Mg/2 Ml Vial IV PUSH 4 mg Q6H PRN Administration Nausea And Vomiting Oxycodone HCl 5 mg 07/31/24 18:43 07/31/24 23:53 Oxycodone Hcl (*Crx) 5 Mg Tab Ir PO 5 mg Q4H PRN Administration Pain Rated 7-10 Radiology Results: ITS Impressions Chest/Abdomen/Pelvis CTA 07/30/24 10:54 IMPRESSION: 1. Gallbladder distention, which may be secondary to fasting or acute cholecystitis. Correlate with physical exam. 2. No significant arterial occlusive disease. 3. Wall thickening of the rectum again seen, consistent with proctitis. Mildly enlarged perirectal lymph nodes again seen, likely reactive. Abdomen Ultrasound 07/30/24 12:18 IMPRESSION: 1. Acute cholecystitis. Labs Labs: Laboratory Results - last 24 hr 08/01/24 05:12 WBC 11.0 H RBC 4.60 Hgb 12.5 L Hct 39.5 L MCV 85.9 MCH 27.2 MCHC 31.6 L RDW 14.1 Plt Count 313 MPV 9.9 Immature Gran % (Auto) 0.4 Neut % (Auto) 74.5 H Lymph % (Auto) 19.9 [place] % (Auto) 4.9 Eos % (Auto) 0.2 Baso % (Auto) 0.1 L Lymph # (Auto) 2.19 [place] # (Auto) 0.5 Eos # (Auto) 0.0 Baso # (Auto) 0.0 Abs Immat Gran (auto) 0.04 H Absolute Neuts (auto) 8.2 H Absolute Nucleated RBC 0.000 Nucleated RBC % 0.0 Sodium 137 Potassium 4.0 Chloride 101 Carbon Dioxide 27 Anion Gap 9 BUN 6 L Creatinine 0.84 Estim Creat Clear Calc 120 Estimated GFR > 60 Glucose 104 Calcium 8.9 Total Bilirubin 0.6 AST 54 ALT 86 H Alkaline Phosphatase 88 Total Protein 7.0 Albumin 3.5
[2024-08-01] MEDS: oxyCODONE HCL (*CRX) 5 MG TAB IR PO ×3 (07:31→21:51)
--- NOTE | 2024-08-01 07:58 | WPDANESPN ---
Anes - Prog Note Post-Op Date/Time: 08/01/24 07:58 Cardiovascular status: normal Respiratory status: normal Airway patency: baseline Mental status: baseline Post-Op hydration status: normal Vital Signs: Last Vital Signs Temp 97.6 F 08/01/24 05:29 Pulse 77 08/01/24 05:29 Resp 14 08/01/24 05:29 BP 121/73 08/01/24 05:29 Pulse Ox 98 08/01/24 05:29 O2 Del Method Room Air 07/31/24 20:59 O2 Flow Rate 7 07/31/24 16:58 FiO2 21 07/31/24 20:59 Pain Score (VAS): 0/10 I/O: Intake & Output 07/31/24 07/31/24 08/01/24 15:59 23:59 07:59 Intake Total 1000 2000 400 Output Total 800 1900 Balance 1000 1200 -1500 Laboratory Tests 08/01/24 05:12 08/01/24 05:12 08/01/24 05:12 WBC 11.0 H RBC 4.60 Hgb 12.5 L Hct 39.5 L MCV 85.9 MCH 27.2 MCHC 31.6 L RDW 14.1 Plt Count 313 MPV 9.9 Immature Gran % (Auto) 0.4 Neut % (Auto) 74.5 H Lymph % (Auto) 19.9 [place] % (Auto) 4.9 Eos % (Auto) 0.2 Baso % (Auto) 0.1 L Lymph # (Auto) 2.19 [place] # (Auto) 0.5 Eos # (Auto) 0.0 Baso # (Auto) 0.0 Abs Immat Gran (auto) 0.04 H Absolute Neuts (auto) 8.2 H Absolute Nucleated RBC 0.000 Nucleated RBC % 0.0 Sodium 137 Potassium 4.0 Chloride 101 Carbon Dioxide 27 Anion Gap 9 BUN 6 L Creatinine 0.84 Estim Creat Clear Calc 120 Estimated GFR > 60 Glucose 104 Calcium 8.9 Total Bilirubin 0.6 AST 54 ALT 86 H Alkaline Phosphatase 88 Total Protein 7.0 Albumin 3.5 Post-procedural complaints: none Patient Feedback: Patient satisfied with anesthetic care.
[2024-08-01 08:00] VITALS: BP 126/75; PULSE 65; RESP 18; TEMP 36.8; O2SAT 99
[2024-08-01 15:41] VITALS: BP 139/82; PULSE 77; RESP 18; TEMP 36.5; O2SAT 100
[2024-08-01] MEDS: HYDROcodone/acetaminophen (*CRX) 5-325 MG TABLET 1 TAB PO (15:46)
[2024-08-01 19:49] VITALS: PULSE 77; RESP 18; O2SAT 100
[2024-08-01 22:02] VITALS: BP 150/93; PULSE 86; RESP 18; TEMP 36.2; O2SAT 98
[2024-08-02] MEDS: oxyCODONE HCL (*CRX) 5 MG TAB IR PO ×3 (03:05→18:43)
[2024-08-02] MEDS: HYDROmorphone HCL INJ (*CRX) 1 MG/ML SYR IV PUSH ×2 (03:41→11:32)
[2024-08-02] MEDS: ONDANSETRON INJ 4 MG/2 ML VIAL IV PUSH ×3 (03:42→23:56)
[2024-08-02 05:28] VITALS: BP 155/92; PULSE 83; RESP 16; TEMP 36.7; O2SAT 98
[2024-08-02 06:09] LABS: Hematocrit 42.4 % (42.0-52.0); Hemoglobin 13.3 g/dL (14.0-18.0); Mean Corpuscular HGB Conc 31.4 g/dl (32-36); Mean Corpuscular Hemoglobin 26.9 pg (26-34); Mean Corpuscular Volume 85.8 fl (80-100); Mean Platelet Volume 9.8 fl (7.4-10.4); Platelet Count Result 314 k/mm3 (150-375); Red Blood Count 4.94 M/mm3 (4.6-6.20); Red Cell Distribution Width 14.3 % (11.5-14.5); White Blood Count 10.8 K/mm3 (4.5-10.0)
[2024-08-02 06:22] LABS: Anion Gap 8 mmol/L (4-12); Blood Urea Nitrogen 9 mg/dL (9-20); Calcium 9.3 mg/dL (8.4-10.2); Carbon Dioxide 28 mmol/L (22-30); Chloride 99 mmol/L (98-107); Estimated CRCL calculation 144 ml/min; Estimated Glomerular Filt Rate > 60; Glucose 113 mg/dL (65-110); Potassium 3.9 mmol/L (3.4-5.0); Sodium 135 mmol/L (137-145)
--- NOTE | 2024-08-02 12:17 | PM.PNGS ---
Progress Note: A&P Assessment and Plan (1) Acute calculous cholecystitis: Code(s): K80.00 - Calculus of gallbladder with acute cholecystitis without obstruction Status: Acute Assessment and Plan: Still having incisional pain that does not feel any better than yesterday. Also complains that no bowel movement since Sunday this week. Will increase ambulation and give soapsuds enema. Hopefully will be feeling better and possibly home tomorrow. Recheck labs and exam again tomorrow. Subjective Subjective Date/Time Seen: 08/02/24 12:17 Post Op day: 2 Patient reports: still having pain, voiding w/o difficulty, no bowel movement and afebrile Exam Const: General: comfortable and awake GI: Inspection: non-distended and incision (Dry and healing) GI Palp: Yes Soft to palpation and Yes Tenderness to palpation present (GI) Auscultation: normal bowel sounds Objective Data Vital Signs Vital Signs: Vital Signs - 24 hr 08/01/24 15:41 08/01/24 19:49 08/01/24 22:02 Temperature 36.5 C 36.2 C L Pulse Rate 77 77 86 Respiratory Rate 18 18 18 Blood Pressure 139/82 150/93 H Pulse Oximetry 100 100 98 Oxygen Delivery Room Air Fraction of Inspired Oxygen 21 08/02/24 05:28 Temperature 36.7 C Pulse Rate 83 Respiratory Rate 16 Blood Pressure 155/92 H Pulse Oximetry 98 Oxygen Delivery Fraction of Inspired Oxygen Intake/Output Intake/Output: Intake & Output 07/30/24 07/31/24 08/01/24 08/02/24 23:59 23:59 23:59 23:59 Intake Total 2172.5 4200 1480 0 Output Total 1600 4550 Balance 2172.5 2600 -3070 0 Meds/Results Medications: Active Medications Generic Name Dose Route Start Last Admin Trade Name Freq PRN Reason Stop Dose Admin Acetaminophen 1,000 mg 07/31/24 18:43 Acetaminophen 500 Mg Tablet PO Q6H PRN Mild Pain (1-3) or Fever Hydrocodone Bitart/Acetaminophen 1 tab 07/31/24 18:43 08/01/24 15:46 Hydrocodone/Acetaminophen (*Crx) 5-325 Mg Tablet PO 1 tab Q4H PRN Administration Pain Rated 4-6 Hydromorphone HCl 1 mg 07/30/24 15:57 08/02/24 11:32 Hydromorphone Hcl Inj (*Crx) 1 Mg/Ml Syr IV PUSH 1 mg Q3H PRN Administration Pain Rated 7-10 Ondansetron HCl 4 mg 07/30/24 15:57 08/02/24 09:25 Ondansetron Inj 4 Mg/2 Ml Vial IV PUSH 4 mg Q6H PRN Administration Nausea And Vomiting Oxycodone HCl 5 mg 07/31/24 18:43 08/02/24 08:32 Oxycodone Hcl (*Crx) 5 Mg Tab Ir PO 5 mg Q4H PRN Administration Pain Rated 7-10 Radiology Results: ITS Impressions Chest/Abdomen/Pelvis CTA 07/30/24 10:54 IMPRESSION: 1. Gallbladder distention, which may be secondary to fasting or acute cholecystitis. Correlate with physical exam. 2. No significant arterial occlusive disease. 3. Wall thickening of the rectum again seen, consistent with proctitis. Mildly enlarged perirectal lymph nodes again seen, likely reactive. Abdomen Ultrasound 07/30/24 12:18 IMPRESSION: 1. Acute cholecystitis. Labs Labs: Laboratory Results - last 24 hr 08/02/24 05:37 WBC 10.8 H RBC 4.94 Hgb 13.3 L Hct 42.4 MCV 85.8 MCH 26.9 MCHC 31.4 L RDW 14.3 Plt Count 314 MPV 9.8 Sodium 135 L Potassium 3.9 Chloride 99 Carbon Dioxide 28 Anion Gap 8 BUN 9 Creatinine 0.69 L Estim Creat Clear Calc 144 Estimated GFR > 60 Glucose 113 H Calcium 9.3
[2024-08-02 15:55] VITALS: BP 137/85; PULSE 103; RESP 16; TEMP 36.6; O2SAT 100
[2024-08-02 21:45] VITALS: BP 148/93; PULSE 92; RESP 16; TEMP 36.1; O2SAT 100
[2024-08-02] MEDS: HYDROcodone/acetaminophen (*CRX) 5-325 MG TABLET 1 TAB PO (23:54)
[2024-08-03 05:21] VITALS: BP 128/71; PULSE 88; RESP 16; TEMP 36.4; O2SAT 99
[2024-08-03 06:25] LABS: Hematocrit 44.8 % (42.0-52.0); Hemoglobin 14.2 g/dL (14.0-18.0); Mean Corpuscular HGB Conc 31.7 g/dl (32-36); Mean Corpuscular Hemoglobin 27.3 pg (26-34); Mean Corpuscular Volume 86.2 fl (80-100); Mean Platelet Volume 9.6 fl (7.4-10.4); Platelet Count Result 384 k/mm3 (150-375); Red Cell Distribution Width 14.1 % (11.5-14.5); White Blood Count 9.6 K/mm3 (4.5-10.0)
[2024-08-03 06:52] LABS: Anion Gap 8 mmol/L (4-12); Blood Urea Nitrogen 9 mg/dL (9-20); Calcium 9.6 mg/dL (8.4-10.2); Carbon Dioxide 32 mmol/L (22-30); Chloride 97 mmol/L (98-107); Estimated CRCL calculation 109 ml/min; Estimated Glomerular Filt Rate > 60; Glucose 111 mg/dL (65-110); Potassium 3.7 mmol/L (3.4-5.0); Sodium 137 mmol/L (137-145)
[2024-08-03] MEDS: HYDROcodone/acetaminophen (*CRX) 5-325 MG TABLET 1 TAB PO (06:57)
[2024-08-03] MEDS: ONDANSETRON INJ 4 MG/2 ML VIAL IV PUSH (06:57)
--- NOTE | 2024-08-03 11:00 | PM.DS ---
DS: Admitting Diagnosis Discharge Date 08/03/2024 Admitting Diagnosis Acute cholecystitis, cholelithiasis DS: Discharge Diagnosis Discharge Diagnosis (1) Acute calculous cholecystitis: Code(s): K80.00 - Calculus of gallbladder with acute cholecystitis without obstruction Status: Acute DS: Summary Hospital Course Hospital Course: Patient came to the emergency room on 07/30/2024 with severe epigastric abdominal pain that started about 5:00 a.m. that day. He had a CTA that did not show any acute vascular or other event. Ultrasound of his gallbladder showed acute cholecystitis and gallstones. He was started on antibiotics and analgesics. Dr. Wallace took the patient to surgery on the next day, 07/31/2024, and performed laparoscopic cholecystectomy. Findings showed acute cholecystitis. Patient was still having a lot of pain and unable to ambulate independently due to pain on postop days 1. And 2. On postop day 2. He was also complaining of inability to have a bowel movement. He received a soap suds enema and passed quite a bit of gas, only a small amount of stool. Following this, however, he felt much better and was able to ambulate several times on postop day 2. On postop day 3. He was comfortable on oral analgesics, tolerating solid food, and ambulating independently. He is discharged now on postop day 3. To be continued on oral antibiotics as an outpatient. Status at Discharge Functional status at discharge: independent ambulation Overall status at discharge: patient is progressing back to baseline Time Spent with Patient Time attestation: Total time spent providing and/or coordinating discharge services: Time spent: Less than 30 minutes DS: Data Data Completed and Pending Pending studies at discharge: Pending at discharge 07/31/24 14:25 Surgical [PTH] Routine Labs on day of discharge: Labs from last 24 hours 08/03/24 06:05 WBC 9.6 RBC 5.20 Hgb 14.2 Hct 44.8 MCV 86.2 MCH 27.3 MCHC 31.7 L RDW 14.1 Plt Count 384 H MPV 9.6 Sodium 137 Potassium 3.7 Chloride 97 L Carbon Dioxide 32 H Anion Gap 8 BUN 9 Creatinine 0.93 Estim Creat Clear Calc 109 Estimated GFR > 60 Glucose 111 H Calcium 9.6 Discharge Plan Discharge Attending physician on discharge: Fred Sanchez Discharging Clinician: Shaun,Jamie A. Anticipated Discharge Date/Time: 08/03/24 11:07 Patient Disposition: Home, Self-Care Activity: may shower, no straining, as tolerated and other - see discharge instructions Diet: regular Wound Care Instructions: other - see discharge instructions Discharge Instructions: May discharge home when stable. Follow up with Dr. Sanchez in the office in 2 weeks. Patient to call [phone] for an appointment. May shower but do not soak incisions under water for 2 weeks. No lifting more than 10 to 15 lb for 2 weeks[address] No driving for 3 days or until no longer taking any narcotic pain medication. Resume all home medications. Prescription for narcotic pain medicines will be sent to the patient's pharmacy if needed. May use Tylenol and/or ibuprofen in addition to or in place of narcotic pain medications for postoperative pain. Take oral antibiotics until they are gone. Patient Instructions: Antibiotic Form Patient Language: [place] Stand Alone Forms: General Discharge Information Follow-up/Referrals: Fred Sanchez MD [Physician] - 2 Weeks (Follow-up Dr. Sanchez in the office in 2 weeks) Discharge Medications: New oxycodone 5 mg tablet 5 mg PO Q6H PRN (Reason: pain) Qty: 15 0RF amoxicillin-pot clavulanate 875-125 mg tablet 1 tablet PO Q12H Qty: 10 0RF ketorolac 10 mg tablet 10 mg PO Q6H 4 Days Qty: 16 0RF Continued acetaminophen 500 mg capsule 500 mg PO Q8H PRN (Reason: pain) Qty: 30 0RF Rx Instructions: Take 1-2 tabs by mouth every 8 hours as needed for pain. Date of admission: 07/30/24 13:03 Primary Care Provider: UNKNOWN,DOCTOR Admitting Provider: Fred Sanchez Attending physician on admission: Fred Sanchez Condition: Improved
== END 2024-08-03 11:40 | disposition home or self-care (01) | DRG 263 ==
LOC: ANHED 10:03 → ANH3MEDSUR 16:11
PROVIDERS: Nurse Practitioner Family; Admitting Provider Surgery; Emergency Provider Student in an Organized Health Care Education/Training Program; Visit Provider Surgery
PROC: 0FT44ZZ Resection of Gallbladder, Percutaneous Endoscopic Approach (ICD-10-PCS; CPT 47562; principal; 2024-07-31 14:30)
DX: K80.00 Calculus of gallbladder with acute cholecystitis without obstruction (principal); F41.9 Anxiety disorder, unspecified
CPT/HCPCS: 36415; 71275; 74174; 76705; 80048; 80053; 81003; 83605; 83690; 84484; 85025; 85027; 85610; 85730; 86850; 86900; 86901; 88304; 93005; 96361; 96365; 96375; 96376; 99285; A9270; J0360; J1100; J1171; J1200; J2004; J2250; J2405; J2543; J2704; J3010; J7030; J7120; Q9967